=== PATIENT | female | born 1945 | race Hispanic/Latino ===

== ENCOUNTER 2016-08-20 06:47 | Inpatient (IN) | payer MEDICARE ==
[2016-08-20 06:47] VITALS: BMI 36.0
--- NOTE | 2016-08-20 08:14 | C.PDOC ---
History Of Present Illness 71-year-old female, PMHx includes Anxiety, Arthritis, Hypercholesterolemia, Hyperlipidemia, and Hypothyroidism, presents to the emergency department with multiple complaints. Patient states she woke up at 05:00 this morning to use the bathroom, where she "lost balance" and fell. Patient notes frequent falls lately secondary to weakness and swelling in bilateral legs. Secondary complaint is urinary retention. patient states she has had retention in the past , for which she has a velez catheter inserted to remove urine. Denies any numbness/weakness, change in bowel habits, back pain, dizziness, headaches, or any other associated symptoms. No other complaints at this time. - HPI Time Seen by Provider: 08/20/16 07:14 Chief Complaint (Nursing): Upper Extremity Problem/Injury History Per: Patient History/Exam Limitations: no limitations Injury Occurred (Timing): Just Before Arrival Past Medical History Reviewed: Historical Data, Nursing Documentation, Vital Signs Vital Signs: Last Vital Signs Temp 97.9 F 08/20/16 16:44 Pulse 89 08/20/16 16:44 Resp 18 08/20/16 16:44 BP 153/83 H 08/20/16 16:44 Pulse Ox 95 08/20/16 16:44 - Medical History PMH: Anxiety, Arthritis, Hypercholesterolemia, Hyperlipidemia, Hypothyroidism Surgical History: Cholecystectomy - [facility] Procedures COLONOSCOPY (09/15/12) ESOPHAGOGASTRODUODENOSCOPY [EGD] W/CLOSED BIOPSY (09/15/12) Family History: States: No Known Family Hx - Social History Hx Alcohol Use: No Hx Substance Use: No - Immunization History Hx Tetanus Toxoid Vaccination: No Hx Influenza Vaccination: Yes Hx Pneumococcal Vaccination: No Review Of Systems Except As Marked, All Systems Reviewed And Found Negative. Constitutional: Negative for: Fever, Chills Cardiovascular: Negative for: Chest Pain, Palpitations Respiratory: Negative for: Shortness of Breath Gastrointestinal: Negative for: Nausea, Vomiting Genitourinary: Positive for: Other (urinary retention) Musculoskeletal: Negative for: Back Pain Neurological: Negative for: Weakness, Numbness Physical Exam - Physical Exam Appears: Non-toxic, No Acute Distress ( ), Other (Obese ) Skin: Warm, Dry, No Rash Head: Atraumatic, Normacephalic Eye(s): bilateral: Normal Inspection, PERRL, EOMI Nose: Normal Oral Mucosa: Moist Lips: Normal Appearing Neck: Normal ROM, Supple Chest: Symmetrical, No Tenderness Cardiovascular: Rhythm Regular, No Friction Rub, No Murmur Respiratory: Normal Breath Sounds, No Accessory Muscle Use, No Rales, No Rhonchi , No Wheezing Gastrointestinal/Abdominal: Soft, No Tenderness Extremity: Pedal Edema (3+, B/L), No Deformity, Swelling Pulses: Left Dorsalis Pedis: Normal, Right Dorsalis Pedis: Normal Neurological/Psych: Oriented x3, Normal Speech, Normal Cranial Nerves, Normal Motor Gait: Steady ED Course And Treatment - Laboratory Results Result Diagrams: 08/20/16 08:53 08/20/16 08:53 ECG: Interpreted By Me ECG Rhythm: Sinus Rhythm Rate From EC O2 Sat by Pulse Oximetry: 98 (on RA) Pulse Ox Interpretation: Normal Medical Decision Making Medical Decision Making: Patient is requesting velez catheter as she is having difficulty walking to the bathroom and refuses to use the bed yuen. Physical therapy eval ordered as the patient cannot walk and has unsteady gait. Orthostatics were performed and is (+) as there was increased in HR from sitting to standing. The case was discussed with Dr. Diane Cordero and agrees to admit this patient. Disposition - Disposition Disposition: HOSPITALIZED Disposition Time: 11:31 Condition: FAIR - Clinical Impression Clinical Impression: Weakness, Unsteady gait - PA / [employer] / Resident Statement MD/DO has reviewed & agrees with the documentation as recorded. - Scribe Statement The provider has reviewed the documentation as recorded by the Scribe (Antolin Chao) All medical record entries made by the Scribe were at my direction and personally dictated by me. I have reviewed the chart and agree that the record accurately reflects my personal performance of the history, physical exam, medical decision making, and the department course for this patient. I have also personally directed, reviewed, and agree with the discharge instructions and disposition.
[2016-08-20 08:58] LABS: BASO # 0.1 K/uL (0.0-0.2); BASO % 0.9 % (0.0-2.0); EOS # 0.1 K/uL (0.0-0.7); EOS % 0.7 % (0.0-4.0); HEMOGLOBIN 13.8 g/dL (11.0-16.0); LYMPH % 16.3 % (20.0-40.0); MEAN CELL VOLUME 87.6 fL (81.0-99.0); MEAN CORPUSCULAR HGB CONC 31.9 g/dL (33.0-37.0); MEAN PLATELET VOLUME 6.6 fL (7.2-11.7); MONO # 0.9 K/uL (0.0-0.8); MONO % 7.3 % (0.0-10.0); NEUT # 9.2 K/uL (1.8-7.0); NEUT % 74.8 % (50.0-75.0); RBC 4.95 Mil/uL (3.80-5.20); RED CELL DISTRIBUTION WIDTH 14.3 % (11.5-14.5); WHITE BLOOD COUNT 12.4 K/uL (4.8-10.8)
[2016-08-20 09:01] LABS: SQUAMOUS EPITHIAL 2 /hpf (0-5); URINE BACTERIA RARE (<OCC); URINE BILIRUBIN NEGATIVE (NEGATIVE); URINE BLOOD NEGATIVE (NEGATIVE); URINE CLARITY Clear (Clear); URINE COLOR Yellow (YELLOW); URINE GLUCOSE (UA) NORMAL (Normal); URINE LEUKOCYTE ESTERASE NEG Leu/uL (Negative); URINE NITRATE NEGATIVE (NEGATIVE); URINE PROTEIN NEGATIVE (NEGATIVE); URINE UROBILINOGEN NORMAL mg/dL (0.2-1.0)
[2016-08-20 09:09] LABS: ALBUMIN 3.8 g/dL (3.5-5.0)
[2016-08-20 09:12] LABS: AST/SGOT 23 U/L (14-36); GFR AFRICAN-AMERICAN > 60; GFR NON-AFRICAN AMERICAN > 60
[2016-08-20 09:13] LABS: ALT/SGPT 15 U/L (9-52); BLOOD UREA NITROGEN 16 mg/dL (7-17); CALCIUM 8.9 mg/dl (8.6-10.4)
--- NOTE | 2016-08-20 09:41 | CT ---
PROCEDURE: CT HEAD WITHOUT CONTRAST. HISTORY: head injury COMPARISON: None available. TECHNIQUE: Axial computed tomography images were obtained through the head/brain without intravenous contrast. Radiation dose: Total exam DLP = 998.49 mGy-cm. This CT exam was performed using one or more of the following dose reduction techniques: Automated exposure control, adjustment of the mA and/or kV according to patient size, and/or use of iterative reconstruction technique. FINDINGS: HEMORRHAGE: No intracranial hemorrhage. BRAIN: No mass effect or edema. Moderate to severe periventricular, deep and subcortical white matter lucency consistent with microvascular white matter ischemic change. No evidence of acute infarct. VENTRICLES: Unremarkable. No hydrocephalus. CALVARIUM: Unremarkable. PARANASAL SINUSES: Unremarkable as visualized. No significant inflammatory changes. MASTOID AIR CELLS: Unremarkable as visualized. No inflammatory changes. OTHER FINDINGS: None. IMPRESSION: No intracranial hemorrhage. Moderate to severe chronic white matter ischemic change. Otherwise unremarkable examination.
--- NOTE | 2016-08-20 09:47 | CT ---
PROCEDURE: CT Lumbar Spine without contrast HISTORY: fall, back pain COMPARISON: None. TECHNIQUE: Axial computed tomography images were obtained of the lumbar spine without the use of intravenous contrast. Coronal and sagittal reformatted images were created and reviewed. Radiation dose: Total exam DLP = 1684.08 mGy-cm. This CT exam was performed using one or more of the following dose reduction techniques: Automated exposure control, adjustment of the mA and/or kV according to patient size, and/or use of iterative reconstruction technique. FINDINGS: VERTEBRAE: Vertebral bodies maintained in height. Transverse processes and posterior elements are intact. Normal vertebral alignment is maintained. DISCS/SPINAL CANAL/NEURAL FORAMINA: L1-2: Unremarkable. L2-3: Mild disc bulge. No herniation. No spinal or foraminal stenosis. L3-4: Mild disc bulge. No herniation. No spinal or foraminal stenosis. L4-5: Mild disc bulge. No herniation. No spinal or foraminal stenosis. L5-S1: Severe bilateral degenerative facet arthropathy. No disc bulge/ herniation. Mild bilateral neural foraminal stenosis. No spinal stenosis. PARASPINAL SOFT TISSUES: Status post cholecystectomy. Sigmoid diverticulosis. OTHER FINDINGS: None. IMPRESSION: No fracture/ dislocation. Multilevel disc bulge. Facet arthropathy bilaterally at L5-S1 with mild bilateral neural foraminal stenosis. No central spinal stenosis. Otherwise unremarkable.
--- NOTE | 2016-08-20 10:13 | CT ---
PROCEDURE: CT scan cervical spine 08/20/2016. HISTORY: Fall with neck injury COMPARISON: No prior study available for comparison TECHNIQUE: Contiguous helical/transaxial computed tomography images were obtained of the cervical spine without the use of intravenous contrast. Coronal and sagittal reformatted images were created and reviewed. . Radiation dose: Total exam DLP = 567.31 mGy-cm. This CT exam was performed using one or more of the following dose reduction techniques: Automated exposure control, adjustment of the mA and/or kV according to patient size, and/or use of iterative reconstruction technique. . FINDINGS: VERTEBRAE: No evidence of acute compression fractures nor retropulsed fragments. Vertebral bodies exhibit normal stature. Vertebral bodies and facets normally aligned. Disc space heights are relatively maintained. No disc herniations however some very minor focal central disc bulging noted at the C3-C4 level and minimal broad-based disc bulging at the C5-C6 levels. Changes do not result in significant cord compression so far as can be seen. . Moderate right-sided facet arthropathy C2-C3 level with minor facet overgrowth at the remaining levels. No evidence of significant canal nor foraminal stenosis. Prevertebral and paraspinal soft tissues appear grossly unremarkable. No evidence of apical pneumothorax. Small approximately 4 mm subpleural nodule right posterior lung apex. Followup nonemergent CT scan of the chest recommended to assess for additional nodules and serve as baseline for comparison purposes to assess this specific nodule as well Impression: No evidence of acute compression fracture nor retropulsed fragments. Minor disc bulging changes noted at C3-C4 and C5-C6 levels. Incidental note made of a small 4 mm in subpleural nodule right posterior lung apex. Followup nonemergent CT scan of the chest recommended as detailed above.
[2016-08-20 10:25] LABS: CK-MB 0.75 ng/mL (0.0-3.38)
[2016-08-20 10:26] LABS: B-TYPE NATRIURETIC PEPTIDE 148 pg/mL (0-900)
--- NOTE | 2016-08-20 17:17 | CP.PCM.HP ---
History of Present Illness - History of Present Illness History of Present Illness: 61 Female with h/o Anxiety disorder, h/o long standing OA affecting knee and ankles , independent of ADL but does not get much out of the house othrwise , was brought to Er after she fell while trying to get up from toilet. Emergency alert was activated and she was brought in. There was no actual syncope or loss of consiousness one soy prior this fall she fell twice at home. once she tripped and not sure why she fell 2 time. Was having issues with knees for a long time .Recently got inj in knees with relief in pain but feels very stiff in the whole leg and not able to lift them much due to stiffness. Denies any chest pain or Shortness of breath. Denies any seizure activity. Present on Admission - Present on Admission Any Indicators Present on Admission: No History of DVT/PE: No History of Uncontrolled Diabetes: No Urinary Catheter: No Decubitus Ulcer Present: No Review of Systems - Constitutional Constitutional: Weight Gain. absent: Fatigue, Fever, Headache - EENT Ears: Disequilibrium. absent: Ear Pain, Tinnitus, Abnormal Hearing Nose/Mouth/Throat: absent: Sinus Pain, Facial Pain, Neck Mass - Breasts Breasts: Change in Shape - Cardiovascular Cardiovascular: Edema. absent: Chest Pain, Claudication, Dyspnea, Syncope - Genitourinary Genitourinary: Urinary Incontinence, Urinary Frequency, Urinary Urgency - Reproductive: Female Reproductive:Female: Post Menopausal - Musculoskeletal Musculoskeletal: Limited Range of Motion, Muscle Weakness, Stiffness - Neurological Neurological: Disequilibrium, Frequent Falls, Lack of Coordination, Weakness. absent: Abnormal Hearing, Abnormal Movements, Other Visual Disturbances - Psychiatric Psychiatric: Anxiety Past Patient History - Infectious Disease Hx of Infectious Diseases: None - Past Social History Smoking Status: Heavy Smoker > 10 Cigarettes Daily - CARDIAC Hx Hypercholesterolemia: Yes Hx Hypertension: No - NEUROLOGICAL HX Cerebrovascular Accident: No Hx Seizures: No Hx Syncope: No - HEENT Other/Comment: WEARS BIFOCALS - ENDOCRINE/METABOLIC Hx Hypothyroidism: Yes - MUSCULOSKELETAL/RHEUMATOLOGICAL Hx Arthritis: Yes - GASTROINTESTINAL Hx Constipation: Yes - GENITOURINARY/GYNECOLOGICAL Hx Genitourinary Disorders: Yes Other/Comment: overreactive bladder - PSYCHIATRIC Hx Anxiety: Yes Hx Substance Use: No - SURGICAL HISTORY Hx Cholecystectomy: Yes - ANESTHESIA Hx Anesthesia: Yes Hx Anesthesia Reactions: No Hx Malignant Hyperthermia: No Meds Allergies/Adverse Reactions: Allergies Allergy/AdvReac Type Severity Reaction Status Date / Time No Known Allergies Allergy Verified 08/20/16 06:49 Physical Exam - Eye Exam Eye Exam: Normal appearance, PERRL - ENT Exam ENT Exam: Mucous Membranes Moist - Neck Exam Neck exam: Negative for: Lymphadenopathy - Respiratory Exam Respiratory Exam: Clear to Auscultation Bilateral, NORMAL BREATHING PATTERN. absent: Rhonchi, Wheezes - Cardiovascular Exam Cardiovascular Exam: REGULAR RHYTHM, +S1, +S2. absent: +S4 - GI/Abdominal Exam GI & Abdominal Exam: Normal Bowel Sounds - Extremities Exam Extremities exam: Positive for: pedal edema. Negative for: calf tenderness Additional comments: both feet appera swollen ,non pitting - Neurological Exam Neurological exam: Alert, CN II-XII Intact, Oriented x3 Additional comments: No focal deficit in legs but not able to lift against gravity. Dital power 5 /5 in both lower extremity. No sensory loss Results - Vital Signs Recent Vital Signs: Last Vital Signs Temp 97.9 F 08/20/16 16:44 Pulse 89 08/20/16 16:44 Resp 18 08/20/16 16:44 BP 153/83 H 08/20/16 16:44 Pulse Ox 98 08/20/16 17:02 - Labs Result Diagrams: 08/20/16 08:53 08/20/16 08:53 - Imaging and Cardiology CT scan - head Status: Report reviewed by me Assessment & Plan (1) Unsteady gait Status: Acute Priority: High Comment: unsteadiness of gait and frequent falls appears to be more related arthritis take condition stiffness of the legs and the weight and not a neurological or a cardiac issue.. Ordered PT evaluation. Will evaluate for short term rehab. Ordered neuro consult for confirmation. Also check the echo to rule out any significant valvular lesions (2) Hypothyroid Status: Acute Comment: stable as outpatient will repeat TSH (3) Osteoarthritis (arthritis due to wear and tear of joints) Status: Acute Comment: would require PT to reduce stiffness and improve mobility
[2016-08-20 17:52] VITALS: RESP 20
[2016-08-20] MEDS ORDERED: Diclofenac Sodium Delayed Release 50 mg EC Tab PO SCH ×2 (18:00)
[2016-08-20] MEDS ORDERED: Home Med 1 UNIT (Diclofenac Sodium [Voltaren] 100 GM) TP SCH (18:00)
[2016-08-20] MEDS: Enoxaparin 40 mg Syringe SC SCH (18:20)
[2016-08-20] MEDS ORDERED: Iodixanol 320 MG/ML 100 ML BOTTLE IV ONE (21:03)
[2016-08-21] MEDS: Levothyroxine 50 MCG TAB PO SCH (05:50)
[2016-08-21] MEDS ORDERED: RABEPRAZOLE SODIUM 20 MG PO SCH (10:00)
[2016-08-21] MEDS ORDERED: Pantoprazole 40 mg EC Tab PO SCH (10:00)
--- NOTE | 2016-08-21 10:14 | CP.PCM.PCO ---
Physician Communication Note - Physician Communication Note Physician Communication Note: needs pt for unsteady gait. thx you.
[2016-08-21] MEDS: Enoxaparin 40 mg Syringe SC SCH (10:27)
[2016-08-21] MEDS: Pantoprazole 40 mg EC Tab PO SCH (10:30)
[2016-08-21] MEDS: DICLOFENAC SODIUM 25 MG PO SCH ×3 (10:31→18:00)
--- NOTE | 2016-08-21 11:05 | CP.PCM.PN ---
Subjective - Date & Time of Evaluation Date of Evaluation: 08/21/16 Time of Evaluation: 09:30 - Subjective Subjective: She was seen in ECHO. Did not sleep well. Not seen by PT yet Objective - Vital Signs/Intake and Output Vital Signs (last 24 hours): Temp Pulse Resp BP Pulse Ox 98.0 F 73 20 151/71 H 95 08/21/16 09:14 08/21/16 09:14 08/21/16 09:14 08/21/16 09:14 08/21/16 09:14 Intake and Output: 08/21/16 08/21/16 06:59 18:59 Intake Total 500 Output Total 400 Balance 100 - Medications Medications: Current Medications Acetaminophen (Tylenol 325mg Tab) 650 mg PO Q6 PRN PRN Reason: Pain, Mild (1-3) Aspirin (Ecotrin) 81 mg PO DAILY [facility] Last Admin: 08/21/16 10:27 Dose: 81 mg Carvedilol (Coreg) 6.25 mg PO BID [facility] Last Admin: 08/21/16 10:27 Dose: 6.25 mg Clonazepam (Klonopin) 1 mg PO DAILY [facility] Last Admin: 08/21/16 10:30 Dose: 1 mg Clonazepam (Klonopin) 2 mg PO [facility] Last Admin: 08/20/16 22:39 Dose: 2 mg Diclofenac Sodium (Voltaren) 50 mg PO BID [facility] Last Admin: 08/21/16 10:31 Dose: 50 mg Enoxaparin Sodium (Lovenox) 40 mg SC DAILY [facility] Last Admin: 08/21/16 10:27 Dose: 40 mg Levothyroxine Sodium (Synthroid) 50 mcg PO DAILY@0630 [facility] Last Admin: 08/21/16 05:50 Dose: 50 mcg Pantoprazole Sodium (Protonix Ec Tab) 40 mg PO DAILY [facility] Last Admin: 08/21/16 10:30 Dose: 40 mg Rosuvastatin Calcium (Crestor) 10 mg PO [facility] Last Admin: 08/20/16 22:38 Dose: 10 mg - Constitutional Appears: No Acute Distress - ENT Exam ENT Exam: Mucous Membranes Moist - Neck Exam Neck Exam: absent: Tenderness - Respiratory Exam Respiratory Exam: Clear to Ausculation Bilateral, NORMAL BREATHING PATTERN. absent: Rhonchi - Cardiovascular Exam Cardiovascular Exam: REGULAR RHYTHM, +S1, +S2 - GI/Abdominal Exam GI & Abdominal Exam: Normal Bowel Sounds - Extremities Exam Extremities Exam: Pedal Edema. absent: Calf Tenderness - Neurological Exam Neurological Exam: Awake, CN II-XII Intact, Oriented x3 - Psychiatric Exam Psychiatric exam: Normal Affect, Normal Mood Assessment and Plan (1) Unsteady gait Assessment & Plan: She is still waiting to be evaluated fot PT. Fall and unstediness should improve by PT . Denies any pain. Wishes to continue with Voltaren gel .Will check CPK to r/o rhabdo Status: Acute (2) Hypothyroid Assessment & Plan: Stable will check TSH Status: Acute (3) Osteoarthritis (arthritis due to wear and tear of joints) Assessment & Plan: Chronic. Pt evaluation and subacute rehab. Status: Acute (4) Lung abnormality Assessment & Plan: Pulmonary nodule on CT spine. Will get CT chest to evaluate as she is a smoker Status: Acute (5) Elevated blood pressure reading Assessment & Plan: Multiple episodes .Started on low dose of Carvedilol Status: Acute
--- NOTE | 2016-08-21 12:41 | CT ---
CT chest with IV contrast Indication: Pulmonary nodule on CT Technique: Contiguous axial images were obtained through the chest with intravenous contrast enhancement. Sagittal and coronal reconstructions were generated and reviewed. This CT exam was performed using 1 or more of the falling dose reduction techniques: Automated exposure control, adjustment of the MAA and/or kV according to patient size, and/or use of iterative reconstruction technique. IV Contrast: 100 cc Visipaque 320 Radiation dose (DLP): 667.28 MGy-cm. Comparison: Chest x-ray performed 07/19/15, CT C-spine performed 08/20/16 Findings: Visualized portions of the inferior thyroid gland appear unremarkable. The mediastinal and hilar vascular structures appear within normal limits. The heart appears within normal limits of size. Dense coronary artery calcifications. No focal consolidation. No pleural effusion. No pneumothorax. 5 mm right upper lobe nodule within the posterior right lung apex (series 3, image 25). Limited visualization of the upper abdomen reveals hypoattenuation of the liver consistent with hepatic steatosis. Cholecystectomy clips. Nodular enlargement of the left adrenal gland may reflect hyperplasia however nodules such as adenomas are not excluded. 14 mm probable splenule. Degenerative changes of the spine. Impression: As seen on CT cervical spine performed 08/20/16, there is a 5 mm right upper lobe nodule within the posterior right lung apex. Guidelines by the Fleischner society (radiology 2005; 237:395-400) suggests that in patients with low risk for lung cancer, nodules from 5 mm to 6 mm in diameter should have follow-up in approximately 12 months. In patients with high-risk, such as those were smokers, follow-up is recommended in 6 months. Patients with a known malignancy or risk for metastases should receive 3 month follow-up. Cholecystectomy. Hepatic steatosis. Nodular enlargement of the left adrenal gland may reflect hyperplasia however nodules such as adenomas are not excluded. Preliminary impression was provided by virtual radiologic. Study has been marked for PA review.
--- NOTE | 2016-08-21 13:31 | VASCLAB ---
PROCEDURE: Lower Extremity Venous Duplex Exam. HISTORY: Leg pain PRIORS: Last exam 02/26/2015,normal. TECHNIQUE: Bilateral common femoral, femoral, popliteal and posterior tibial, peroneal and great saphenous veins were evaluated. Flow was assessed with color Doppler, compressibility, assessment of phasic flow and augmentation response. Report prepared by NICOLA Martinez FINDINGS: RIGHT: 1. Common Femoral Vein: 1.1. Compressibility - Fully compressible: Thrombus - None : Flow - Phasic: Augmentation -Normal: Reflux - None. 2. Femoral Vein: 2.1. Compressibility - Fully compressible: Thrombus - None : Flow - Phasic: Augmentation -Normal: Reflux - None. 3. Popliteal Vein: 3.1. Compressibility - Fully compressible: Thrombus - None : Flow - Phasic: Augmentation -Normal: Reflux - None. 4. Great Saphenous Vein: 4.1. Compressibility - Fully compressible: Thrombus - None: Flow - Phasic: Augmentation - Normal: Reflux - None. LEFT: 1. Common Femoral Vein: 1.1. Compressibility - Fully compressible: Thrombus - None: Flow - Phasic: Augmentation -Normal: Reflux - None. 2. Femoral Vein: 2.1. Compressibility - Fully compressible: Thrombus - None: Flow - Phasic: Augmentation -Normal: Reflux - None. 3. Popliteal Vein: 3.1. Compressibility - Fully compressible: Thrombus - None : Flow - Phasic: Augmentation -Normal: Reflux - None. 4. Posterior Tibial Vein: 4.1. Compressibility - Fully compressible: Thrombus - None: Flow - Phasic: Augmentation -Normal: Reflux - None. 5. Peroneal Vein: 5.1. Compressibility - Fully compressible: Thrombus - None: Flow - Phasic: Augmentation -Normal: Reflux - None. 6. Great Saphenous Vein: 6.1. Compressibility - Fully compressible: Thrombus - None: Flow - Phasic: Augmentation - Normal: Reflux - None. OTHER FINDINGS: Right: Unable to image the right posterior tibial and peroneal veins, due to swelling. Remaining veins in the right lower extremity are compressible. Left: None significant. IMPRESSION: Right: No evidence of deep or superficial vein thrombosis of the right lower extremity, for the above mentioned veins. Normal valve function noted of the right side. Left: No evidence of deep or superficial vein thrombosis of the left lower extremity. Normal valve function noted of the left side.
[2016-08-21 14:49] LABS: BASO # 0.1 K/uL (0.0-0.2); BASO % 0.6 % (0.0-2.0); EOS # 0.2 K/uL (0.0-0.7); EOS % 1.4 % (0.0-4.0); HEMOGLOBIN 12.7 g/dL (11.0-16.0); LYMPH # 2.2 K/uL (1.0-4.3); LYMPH % 20.7 % (20.0-40.0); MEAN CELL VOLUME 86.2 fL (81.0-99.0); MEAN CORPUSCULAR HEMOGLOBIN 27.3 pg (27.0-31.0); MEAN CORPUSCULAR HGB CONC 31.7 g/dL (33.0-37.0); MEAN PLATELET VOLUME 6.9 fL (7.2-11.7); MONO # 0.9 K/uL (0.0-0.8); MONO % 8.4 % (0.0-10.0); NEUT # 7.5 K/uL (1.8-7.0); NEUT % 68.9 % (50.0-75.0); RBC 4.67 Mil/uL (3.80-5.20); WHITE BLOOD COUNT 10.9 K/uL (4.8-10.8)
[2016-08-21 15:05] LABS: ALBUMIN 3.3 g/dL (3.5-5.0)
[2016-08-21 15:08] LABS: AST/SGOT 19 U/L (14-36); BLOOD UREA NITROGEN 9 mg/dL (7-17); GFR AFRICAN-AMERICAN > 60; GFR NON-AFRICAN AMERICAN > 60
[2016-08-21 15:09] LABS: ALT/SGPT 18 U/L (9-52); CALCIUM 8.4 mg/dl (8.6-10.4)
[2016-08-22] MEDS: Levothyroxine 50 MCG TAB PO SCH (05:45)
--- NOTE | 2016-08-22 07:09 | CARD ---
APPROVED REPORT EKG Measurement Heart [id number] <Conclusion> Normal sinus rhythm Normal ECG
--- NOTE | 2016-08-22 07:25 | CARD ---
APPROVED REPORT EXAM: Two-dimensional and M-mode echocardiogram with Doppler and color Doppler. Other Information Quality : GoodRhythm : NSR INDICATION Hypertension/HCVD tds RISK FACTORS Smoking M-Mode DIMENSIONS RVDd1.01 (2.1-3.2cm)Left Atrium (MM)3.84 (2.5-4.0cm) IVSd0.91 (0.7-1.1cm)Aortic Root2.21 (2.2-3.7cm) LVDd4.07 (4.0-5.6cm)Aortic Cusp Exc.1.70 (1.5-2.0cm) PWd1.07 (0.7-1.1cm)FS (%) 29 % LVDs2.90 (2.0-3.8cm)LVEF (%)56 (>50%) Mitral Valve MV E Rkomkwrs51.5cm/sMV A Obeqbyzy662.5cm/sE/A ratio0.4 TDI E/Lateral E'0.0E/Medial E'0.0 Tricuspid Valve TR Peak Cljzqeth565cw/sTR Peak Gr.[id number] LEFT VENTRICLE The left ventricle is normal size. There is normal left ventricular wall thickness. Left ventricle systolic function is normal. The Ejection Fraction is 55-60%. There is normal LV segmental wall motion. Tissue Doppler imaging reveals abnormal left ventricular diastolic dysfunction. RIGHT VENTRICLE The right ventricle is normal size. There is normal right ventricular wall thickness. The right ventricular systolic function is normal. ATRIA The left atrium size is normal. The right atrium size is normal. The interatrial septum is intact with no evidence for an atrial septal defect. AORTIC VALVE The aortic valve is mildly calcified but opens well. No aortic regurgitation is present. There is no aortic valvular stenosis. MITRAL VALVE The posterior mitral valve leaflet appears mildly, but open well.. There is no evidence of mitral valve prolapse. There is no mitral valve stenosis. There is no mitral valve regurgitation noted. TRICUSPID VALVE The tricuspid valve is normal in structure. There is trace to mild tricuspid regurgitation. Right ventricular systolic pressure is estimated at 40-50 mmHg. There is mild-moderate pulmonary hypertension. PULMONIC VALVE The pulmonic valve is not well visualized. There is no pulmonic valvular regurgitation. GREAT VESSELS The aortic root is normal in size. PERICARDIAL EFFUSION There is no significant pericardial effusion. <Conclusion> Left ventricle systolic function is normal. The Ejection Fraction is 55-60%. Diastolic dysfunction. No aortic regurgitation is present. There is no mitral valve regurgitation noted. There is trace to mild tricuspid regurgitation. There is mild-moderate pulmonary hypertension. There is no pulmonic valvular regurgitation.
[2016-08-22] MEDS: Pantoprazole 40 mg EC Tab PO SCH (09:10)
[2016-08-22] MEDS: Enoxaparin 40 mg Syringe SC SCH (09:11)
[2016-08-22] MEDS: DICLOFENAC SODIUM 25 MG PO SCH ×2 (11:37→17:44)
--- NOTE | 2016-08-22 17:00 | CP.PCM.PN ---
Subjective - Date & Time of Evaluation Date of Evaluation: 08/22/16 Time of Evaluation: 16:58 - Subjective Subjective: Feels OK. Was seen by PT. Made to ambulate. No significant pain. Not able to sleep well due to all the noises Objective - Vital Signs/Intake and Output Vital Signs (last 24 hours): Temp Pulse Resp BP Pulse Ox 98 F 69 20 137/72 95 08/22/16 08:00 08/22/16 13:37 08/22/16 08:00 08/22/16 13:37 08/22/16 13:37 Intake and Output: 08/22/16 08/22/16 06:59 18:59 Output Total 200 Balance -200 - Medications Medications: Current Medications Acetaminophen (Tylenol 325mg Tab) 650 mg PO Q6 PRN PRN Reason: Pain, Mild (1-3) Last Admin: 08/21/16 16:29 Dose: 650 mg Aspirin (Ecotrin) 81 mg PO DAILY [facility] Last Admin: 08/22/16 09:09 Dose: 81 mg Carvedilol (Coreg) 6.25 mg PO BID [facility] Last Admin: 08/22/16 09:10 Dose: 6.25 mg Clonazepam (Klonopin) 1 mg PO DAILY [facility] Last Admin: 08/22/16 09:06 Dose: 1 mg Clonazepam (Klonopin) 2 mg PO [facility] Last Admin: 08/21/16 21:26 Dose: 2 mg Diclofenac Sodium (Voltaren) 50 mg PO BID [facility] Last Admin: 08/22/16 11:37 Dose: 50 mg Enoxaparin Sodium (Lovenox) 40 mg SC DAILY [facility] Last Admin: 08/22/16 09:11 Dose: 40 mg Levothyroxine Sodium (Synthroid) 50 mcg PO DAILY@0630 [facility] Last Admin: 08/22/16 05:45 Dose: 50 mcg Pantoprazole Sodium (Protonix Ec Tab) 40 mg PO DAILY [facility] Last Admin: 08/22/16 09:10 Dose: 40 mg Rosuvastatin Calcium (Crestor) 10 mg PO HS [facility] Last Admin: 08/21/16 21:26 Dose: 10 mg - Labs Labs: 08/21/16 14:35 08/21/16 14:35 - Constitutional Appears: No Acute Distress - Eye Exam Pupil Exam: PERRL - ENT Exam ENT Exam: Mucous Membranes Moist - Neck Exam Neck Exam: absent: Lymphadenopathy - Cardiovascular Exam Cardiovascular Exam: REGULAR RHYTHM, +S1, +S2 - GI/Abdominal Exam GI & Abdominal Exam: Soft, Normal Bowel Sounds. absent: Tenderness - Extremities Exam Extremities Exam: Pedal Edema. absent: Calf Tenderness - Neurological Exam Neurological Exam: Alert, CN II-XII Intact Assessment and Plan (1) Unsteady gait Assessment & Plan: Accepted in rehab for PT. To be tranferred tomorrow. Advised to get out of bed and moce extremity even when in bed. on DVT prophylaxis .No neuro issues . Status: Acute (2) Hypothyroid Assessment & Plan: Normal TSJ. Cont with PO supplements Status: Acute (3) Osteoarthritis (arthritis due to wear and tear of joints) Assessment & Plan: Cont with Voltren gel. Will need PT Status: Acute (4) Lung abnormality Assessment & Plan: Had CT done today for chest .Small pulmonary nodule .Will repeat in 6 months due to h/o smoking Status: Acute (5) Elevated blood pressure reading Assessment & Plan: Better but still fluctuating .Will monitor Status: Acute - Assessment and Plan (Free Text) Assessment: Low Potassium.Will supplement
[2016-08-22 17:19] VITALS: O2SAT 94
[2016-08-22] MEDS ORDERED: Potassium Chloride 20 mEq/15 ml LIQ UD PO STA (17:21)
[2016-08-23 01:03] VITALS: BP 132/78; PULSE 75; TEMP 97.7
[2016-08-23] MEDS: Levothyroxine 50 MCG TAB PO SCH (06:02)
[2016-08-23] MEDS: Pantoprazole 40 mg EC Tab PO SCH (10:09)
[2016-08-23] MEDS: Enoxaparin 40 mg Syringe SC SCH (10:09)
[2016-08-23] MEDS: DICLOFENAC SODIUM 25 MG PO SCH (10:13)
--- NOTE | 2016-08-23 11:14 | CP.PCM.PN ---
Subjective - Date & Time of Evaluation Date of Evaluation: 08/23/16 Time of Evaluation: 11:00 - Subjective Subjective: [employer] NOTES PT seen and examined today states feels fine, no c/o voiced Objective - Vital Signs/Intake and Output Vital Signs (last 24 hours): Temp Pulse Resp BP Pulse Ox 97.7 F 75 20 132/78 94 L 08/23/16 00:00 08/23/16 00:00 08/23/16 00:00 08/23/16 00:00 08/23/16 00:00 Intake and Output: 08/23/16 08/23/16 06:59 18:59 Intake Total 120 Output Total 500 Balance 120 -500 - Medications Medications: Current Medications Acetaminophen (Tylenol 325mg Tab) 650 mg PO Q6 PRN PRN Reason: Pain, Mild (1-3) Last Admin: 08/21/16 16:29 Dose: 650 mg Aspirin (Ecotrin) 81 mg PO DAILY [facility] Last Admin: 08/23/16 10:09 Dose: 81 mg Carvedilol (Coreg) 6.25 mg PO BID [facility] Last Admin: 08/23/16 10:09 Dose: 6.25 mg Clonazepam (Klonopin) 1 mg PO DAILY [facility] Last Admin: 08/23/16 10:15 Dose: Not Given Clonazepam (Klonopin) 2 mg PO [facility] Last Admin: 08/22/16 21:29 Dose: 2 mg Diclofenac Sodium (Voltaren) 50 mg PO BID [facility] Last Admin: 08/23/16 10:13 Dose: Not Given Enoxaparin Sodium (Lovenox) 40 mg SC DAILY [facility] Last Admin: 08/23/16 10:09 Dose: 40 mg Levothyroxine Sodium (Synthroid) 50 mcg PO DAILY@0630 [facility] Last Admin: 08/23/16 06:02 Dose: 50 mcg Pantoprazole Sodium (Protonix Ec Tab) 40 mg PO DAILY [facility] Last Admin: 08/23/16 10:09 Dose: 40 mg Rosuvastatin Calcium (Crestor) 10 mg PO [facility] Last Admin: 08/22/16 21:26 Dose: 10 mg - Labs Labs: 08/21/16 14:35 08/21/16 14:35 - Constitutional Appears: Well, No Acute Distress - ENT Exam ENT Exam: Mucous Membranes Moist - Respiratory Exam Respiratory Exam: Clear to Ausculation Bilateral, NORMAL BREATHING PATTERN - Cardiovascular Exam Cardiovascular Exam: REGULAR RHYTHM, +S1, +S2 - Neurological Exam Neurological Exam: Alert, Oriented x3 Assessment and Plan - Assessment and Plan (Free Text) Assessment: 71-year-old female, PMHx includes Anxiety, Arthritis, Hypercholesterolemia, Hyperlipidemia, and Hypothyroidism, admitted for unsteady gait, elevated bp bp stable Pt accepted at [facility] for rehab D/W Dr. Gil morales for discharge to [facility] today under Dr. Rodriguez service discharge plan discussed with patient who understands and agrees with plan
--- NOTE | 2016-08-23 14:24 | CP.PCM.DIS ---
Provider - Provider Date of Admission: 08/20/16 11:30 Attending physician: Diane Cordero MD Diagnosis - Discharge Diagnosis (1) Unsteady gait Status: Acute Priority: High (2) Hypothyroid Status: Acute (3) Osteoarthritis (arthritis due to wear and tear of joints) Status: Acute (4) Lung abnormality Status: Acute (5) Elevated blood pressure reading Status: Acute Hospital Course - Lab Results Lab Results: Most Recent Lab Values WBC 10.9 K/uL (4.8-10.8) H 08/21/16 14:35 RBC 4.67 Mil/uL (3.80-5.20) 08/21/16 14:35 Hgb 12.7 g/dL (11.0-16.0) 08/21/16 14:35 Hct 40.2 % (34.0-47.0) 08/21/16 14:35 MCV 86.2 fL (81.0-99.0) 08/21/16 14:35 MCH 27.3 pg (27.0-31.0) 08/21/16 14:35 MCHC 31.7 g/dL (33.0-37.0) L 08/21/16 14:35 RDW 14.0 % (11.5-14.5) 08/21/16 14:35 Plt Count 315 K/uL (130-400) 08/21/16 14:35 MPV 6.9 fL (7.2-11.7) L 08/21/16 14:35 Neut % (Auto) 68.9 % (50.0-75.0) 08/21/16 14:35 Lymph % (Auto) 20.7 % (20.0-40.0) 08/21/16 14:35 Kay % (Auto) 8.4 % (0.0-10.0) 08/21/16 14:35 Eos % (Auto) 1.4 % (0.0-4.0) 08/21/16 14:35 Baso % (Auto) 0.6 % (0.0-2.0) 08/21/16 14:35 Neut # 7.5 K/uL (1.8-7.0) H 08/21/16 14:35 Lymph # 2.2 K/uL (1.0-4.3) 08/21/16 14:35 Kay # 0.9 K/uL (0.0-0.8) H 08/21/16 14:35 Eos # 0.2 K/uL (0.0-0.7) 08/21/16 14:35 Baso # 0.1 K/uL (0.0-0.2) 08/21/16 14:35 Sodium 138 mmol/L (132-148) 08/21/16 14:35 Potassium 3.5 mmol/L (3.6-5.2) L 08/21/16 14:35 Chloride 103 mmol/L (98-107) 08/21/16 14:35 Carbon Dioxide 26 mmol/L (22-30) 08/21/16 14:35 Anion Gap 13 (10-20) 08/21/16 14:35 BUN 9 mg/dL (7-17) 08/21/16 14:35 Creatinine 0.6 MG/DL (0.7-1.2) L 08/21/16 14:35 Est GFR ( Amer) > 60 08/21/16 14:35 Est GFR (Non-Af Amer) > 60 08/21/16 14:35 Random Glucose 100 mg/dL (65-105) 08/21/16 14:35 Calcium 8.4 mg/dl (8.6-10.4) L 08/21/16 14:35 Total Bilirubin 0.7 mg/dL (0.2-1.3) 08/21/16 14:35 AST 19 U/L (14-36) 08/21/16 14:35 ALT 18 U/L (9-52) 08/21/16 14:35 Alkaline Phosphatase 87 U/L (38-126) 08/21/16 14:35 Total Creatine Kinase 41 U/L (30-135) 08/21/16 14:35 CK-MB (Mass) 0.75 ng/mL (0.0-3.38) 08/20/16 08:53 Troponin I, Quant < 0.0120 ng/mL (0.00-0.120) 08/20/16 08:53 NT-Pro-B Natriuret Pep 148 pg/mL (0-900) 08/20/16 08:53 Total Protein 6.5 g/dL (6.3-8.3) 08/21/16 14:35 Albumin 3.3 g/dL (3.5-5.0) L 08/21/16 14:35 Globulin 3.2 gm/dL (2.2-3.9) 08/21/16 14:35 Albumin/Globulin Ratio 1.0 (1.0-2.1) 08/21/16 14:35 TSH 3rd Generation 2.58 mIU/L (0.46-4.68) 08/21/16 14:35 Urine Color Yellow (YELLOW) 08/20/16 08:53 Urine Clarity Clear (Clear) 08/20/16 08:53 Urine pH 6.0 (5.0-8.0) 08/20/16 08:53 Ur Specific [place] 1.017 (1.003-1.030) 08/20/16 08:53 Urine Protein Negative mg/dL (NEGATIVE) 08/20/16 08:53 Urine Glucose (UA) Normal mg/dL (Normal) 08/20/16 08:53 Urine Ketones Negative mg/dL (NEGATIVE) 08/20/16 08:53 Urine Blood Negative (NEGATIVE) 08/20/16 08:53 Urine Nitrate Negative (NEGATIVE) 08/20/16 08:53 Urine Bilirubin Negative (NEGATIVE) 08/20/16 08:53 Urine Urobilinogen Normal mg/dL (0.2-1.0) 08/20/16 08:53 Ur Leukocyte Esterase Neg Meche/uL (Negative) 08/20/16 08:53 Urine WBC (Auto) 1 /hpf (0-5) 08/20/16 08:53 Urine RBC (Auto) 1 /hpf (0-3) 08/20/16 08:53 Ur Squamous Epith Cells 2 /hpf (0-5) 08/20/16 08:53 Urine Bacteria Rare (<OCC) 08/20/16 08:53 Discharge Plan - Follow Up Plan Condition: FAIR Disposition: HOME/ ROUTINE Instructions: Weakness (ED), Weakness (GEN), Fall Prevention (DC) Additional Instructions: Please admit patient under Dr. Rodriguez service - Call Dr. Rodriguez upon patient arrival to the faciltity Continue medication as per Med. Rec.
== END 2016-08-23 14:01 | disposition home or self-care (01) | DRG 93 ==
LOC: SUPCPDRO 06:47 → C.ER 06:47 → C.9E 11:30 → C.3T 16:06
PROVIDERS: ADMIT Internal Medicine; ATTEND Internal Medicine
DX: R26.81 Unsteadiness on feet (principal); E03.9 Hypothyroidism, unspecified; W01.0XXA Fall on same level from slipping, tripping and stumbling without subsequent striking against object, initial encounter; E78.5 Hyperlipidemia, unspecified; E78.00 Pure hypercholesterolemia, unspecified; R29.6 Repeated falls; F17.210 Nicotine dependence, cigarettes, uncomplicated; M17.0 Bilateral primary osteoarthritis of knee; M19.072 Primary osteoarthritis, left ankle and foot; M19.071 Primary osteoarthritis, right ankle and foot; R03.0 Elevated blood-pressure reading, without diagnosis of hypertension; Z90.49 Acquired absence of other specified parts of digestive tract; F41.9 Anxiety disorder, unspecified